=== PATIENT | female | born 1950 | race Caucasian/White ===

== ENCOUNTER → 2018-01-24 | Outpatient (CLI) | payer MEDICARE ==
[2018-01-24 16:02] LABS: BASO % 0.4 % (0.0-2.0); EOS # 0.2 (0.0-0.7); EOS % 2.2 % (0-4.0); GRAN % 56.2 % (42.2-75.2); HEMOGLOBIN 14.3 g/dl (12.5-16.0); LYMPH # 2.3 (1.2-3.4); LYMPH % 32.3 % (20.0-51.0); MEAN CELL VOLUME 92 fl (80.0-100.0); MEAN CORPUSCULAR HEMOGLOBIN 31 pg (27.0-31.0); MEAN CORPUSCULAR HGB CONC 33 g/dl (33.0-37.0); MEAN PLATELET VOLUME 10.9 fl (7.4-10.4); MONO # 0.6 (0.1-0.6); MONO % 7.9 % (1.7-9.3); PLATELET COUNT 192 K/mm3 (130-400); RED BLOOD COUNT 4.66 M/mm3 (4.10-5.30); REDCELL DISTRIBUTION WIDTH-CV 13.4 % (11.5-14.5)
[2018-01-24 16:11] LABS: ALBUMIN 4.5 gm/dL (3.5-5.0); BILIRUBIN,TOTAL 0.6 mg/dL (0.0-1.0); CALCIUM 10.2 mg/dL (8.4-10.2); CHOLESTEROL RISK RATIO 3.6; CREATININE, serum 0.61 mg/dL (0.52-1.25); POTASSIUM 4.2 mmol/L (3.4-5.0); TOTAL PROTEIN 9.3 gm/dL (6.4-8.2)
[2018-01-24 16:41] LABS: TSH w REFLEX 0.177 uIU/mL (0.465-4.680)
== END ==
LOC: COL.LAB 11:24
PROVIDERS: Family Medicine
DX: I10 Essential (primary) hypertension (principal); E78.5 Hyperlipidemia, unspecified; Z13.29 Encounter for screening for other suspected endocrine disorder

== ENCOUNTER → 2018-02-14 | Outpatient (CLI) | payer MEDICARE ==
[2018-02-14 16:52] LABS: THYROID STIMULATING HORMONE 0.067 uIU/mL (0.465-4.680)
[2018-02-15 02:15] LABS: T3 TOTAL 227 ng/dL (87-178)
== END ==
LOC: COL.LAB 11:13
PROVIDERS: Family Medicine
DX: E05.90 Thyrotoxicosis, unspecified without thyrotoxic crisis or storm (principal)

== ENCOUNTER → 2018-03-16 | Outpatient (CLI) | payer MEDICARE | LOC: COL.RAD 13:24 → COL.LAB 13:24 → COL.RAD 14:15 | DX: E05.20 Thyrotoxicosis with toxic multinodular goiter without thyrotoxic crisis or storm (principal) ==

== ENCOUNTER → 2018-03-28 | Outpatient (CLI) | payer MEDICARE ==
[~2018-03-28] VITALS: Ht 152.4 cm; Wt 89.4 kg
[~2018-03-28] MED LIST: ALLEGRA 60MG TA60 MG PO; CALCIUM CARBON650 M2 PO; CEROVITE SENIOR1 TA1 PO; DIOVAN/HCT 12.51 TAB PO; EPA FISH OIL1 SGL PO; FELDENE20 MG PO; HARD NAILS 2.51 CAP PO; HORSETAIL GRASS; NORVASC 5MG5 MG/TAB PO; TENORMIN100 MG PO; VITAMIN D 1001000 IU PO
[2018-03-28 08:41] VITALS: BP 164/90; PULSE 60
== END ==
LOC: LIGHT 08:00
DX: I10 Essential (primary) hypertension (principal); M15.9 Polyosteoarthritis, unspecified; E66.9 Obesity, unspecified; Z68.38 Body mass index [BMI] 38.0-38.9, adult; Z71.3 Dietary counseling and surveillance; N39.3 Stress incontinence (female) (male)
CPT/HCPCS: G0463

== ENCOUNTER 2018-04-02 12:45 | Outpatient (RCR) | payer MEDICARE | END 2018-04-02 14:22 | disposition home or self-care (01) | LOC: WSC 12:45 | DX: M54.32 Sciatica, left side (principal) | CPT/HCPCS: G8978-GP; G8979-GP; G8980-GP ==

== ENCOUNTER → 2018-05-02 | Outpatient (CLI) | payer MEDICARE ==
[~2018-05-02] MED LIST changes: +AVALIDE 12.5 MG1 TA1 PO; +PHENTERMINE15 MG PO
== END ==
LOC: MC.RAD 13:59
DX: Z12.31 Encounter for screening mammogram for malignant neoplasm of breast (principal)

== ENCOUNTER → 2018-05-03 | Outpatient (CLI) | payer MEDICARE ==
[~2018-05-03] VITALS: Ht 152.4 cm; Wt 90.0 kg
[2018-05-03 10:09] VITALS: BP 150/86; PULSE 72
== END ==
LOC: LIGHT 10:00
DX: I10 Essential (primary) hypertension (principal); M15.9 Polyosteoarthritis, unspecified; E66.9 Obesity, unspecified; Z68.38 Body mass index [BMI] 38.0-38.9, adult; Z71.3 Dietary counseling and surveillance
CPT/HCPCS: G0463

== ENCOUNTER → 2018-05-28 | Outpatient (CLI) | payer MEDICARE | LOC: LIGHT 10:59 | DX: Z09 Encounter for follow-up examination after completed treatment for conditions other than malignant neoplasm (principal) ==

== ENCOUNTER → 2018-06-07 | Outpatient (CLI) | payer MEDICARE ==
[~2018-06-07] VITALS: Ht 152.4 cm; Wt 89.1 kg
[2018-06-07 11:13] VITALS: BP 132/86; PULSE 68
== END ==
LOC: LIGHT 06-05 16:30
DX: I10 Essential (primary) hypertension (principal); M15.9 Polyosteoarthritis, unspecified; N39.3 Stress incontinence (female) (male); E66.9 Obesity, unspecified; Z68.38 Body mass index [BMI] 38.0-38.9, adult; Z71.3 Dietary counseling and surveillance
CPT/HCPCS: G0463

== ENCOUNTER → 2019-07-30 | Outpatient (CLI) | payer MEDICARE | LOC: MC.RAD 11:24 | DX: Z12.31 Encounter for screening mammogram for malignant neoplasm of breast (principal); Z98.82 Breast implant status ==

== ENCOUNTER → 2020-07-31 | Outpatient (CLI) | payer MEDICARE | LOC: MC.RAD 11:26 | DX: Z12.31 Encounter for screening mammogram for malignant neoplasm of breast (principal) ==

== ENCOUNTER 2021-04-01 10:28 | Day surgery (SDC) | payer MEDICARE ==
[2021-04-01] VITALS (10 sets, daily range): BP systolic 112–152; BP diastolic 58–96; PULSE 71–87; TEMP 97.6–98.5
[~2021-04-01] VITALS: Ht 152.4 cm; Wt 86.8 kg
[~2021-04-01 10:28] MED LIST changes: +GLUCOPHAGE1000 MG PO; +GLUCOPHAGE500 MG/TAB PO; +HYZAAR 12.5 MG-1 TAB PO; +LASIX 20MG TABL20 MG PO; +LOSARTAN POTASSIUM/H; +MOBIC15 MG PO; +NORVASC 10MG10 MG PO; +TOPROL XL100 MG PO; +ZOCOR 40MG40 MG PO
[2021-04-01] MEDS ORDERED: MOTRIN 600600 MG/TAB PO (14:18)
[2021-04-01] MEDS ORDERED: NORCO 325 MG-51 TAB PO (14:19)
[2021-04-01] MEDS ORDERED: ZOFRAN ODT4 MG PO (14:33)
[2021-04-02 04:16] VITALS: BP 128/71; PULSE 70; TEMP 97.9
[2021-04-02 07:16] LABS: BASO % 0.1 % (0.0-2.0); GRAN # 8.2 (1.4-6.5); GRAN % 83.7 % (42.2-75.2); HEMOGLOBIN 11.3 g/dl (12.5-16.0); LYMPH # 1.2 (1.2-3.4); LYMPH % 11.8 % (20.0-51.0); MEAN CELL VOLUME 90 fl (80.0-100.0); MEAN CORPUSCULAR HEMOGLOBIN 29 pg (27.0-31.0); MEAN CORPUSCULAR HGB CONC 32 g/dl (33.0-37.0); MEAN PLATELET VOLUME 10.4 fl (7.4-10.4); MONO # 0.3 (0.1-0.6); MONO % 3.5 % (1.7-9.3); PLATELET COUNT 273 K/mm3 (130-400); RED BLOOD COUNT 3.89 M/mm3 (4.10-5.30); REDCELL DISTRIBUTION WIDTH-CV 14.6 % (11.5-14.5)
[2021-04-02 07:19] LABS: HEMATOCRIT 34.9 % (37.0-47.0)
[2021-04-02 07:29] LABS: ALBUMIN 3.9 gm/dL (3.5-5.0); BILIRUBIN,TOTAL 0.2 mg/dL (0.0-1.0); CREATININE, serum 0.6 (0.52-1.25); POTASSIUM 3.8 mmol/L (3.4-5.0); TOTAL PROTEIN 7.2 gm/dL (6.4-8.2)
[2021-04-02 07:46] VITALS: BP 121/73; PULSE 70; TEMP 98.6
--- NOTE | 2021-04-02 08:00 | NUR ---
PATIENT IS A&O. VSS. REPORTS MILD ABD DISCOMFORT AND DENIES NEED FOR PAIN MEDS AT THIS TIME. ABD IS ROUND, SOFT AND WITH POSITIVE BOWL SOUNDS. PATIENT REPORTS SHE IS PASSING GAS. LAST BM WAS YESTERDAY AM. ABD LAP SITES X3 ARE CD&I WITH GLUDED CLOSURE. PATIENT IS EAT/DRINK/VOIDING SUFFICIENT AMOUNTS. HEAD TO TOE ASSESSMENT WNL. LEFT FORARM IV TO INT. BREAKFAST TRAY AT BEDSIDE. AM MEDS GIVEN. PATIENT INDEPENDENT IN ROOM. NO OTHER NEEDS AT THIS TIME. CALL LIGHT IN REACH.
[2021-04-02 12:00] VITALS: BP 134/70; PULSE 64; TEMP 98.1
--- NOTE | 2021-04-02 12:07 | NUR ---
First visit from [facility]. No needs right now.
--- NOTE | 2021-04-02 14:50 | NUR ---
AT BEDSIDE. SEE DISCHARGE ORDERS.
--- NOTE | 2021-04-02 15:20 | NUR ---
PATIENT DISCHARGING HOME VIA AMBULATORY TO PERSONAL VEHICLE WITH . GAVE DISCHARGE INSTRUCTIONS, E-SCRIPTS SENT, AND IV DC'D. COVERED SITE WITH GAUZE & BANDAID. PATIENT IS DRESSED, PACKED AND DISCHARGED.
== END 2021-04-02 15:20 | disposition home or self-care (01) ==
LOC: SDCO 10:28 → SURG 15:00 → SDCO 04-02 15:20
PROVIDERS: Surgery
DX: K56.50 Intestinal adhesions [bands], unspecified as to partial versus complete obstruction (principal); E78.00 Pure hypercholesterolemia, unspecified; M81.0 Age-related osteoporosis without current pathological fracture; I10 Essential (primary) hypertension; M19.90 Unspecified osteoarthritis, unspecified site; E11.9 Type 2 diabetes mellitus without complications; Z79.84 Long term (current) use of oral hypoglycemic drugs; Z79.899 Other long term (current) drug therapy; Z90.710 Acquired absence of both cervix and uterus; Z80.42 Family history of malignant neoplasm of prostate; Z82.3 Family history of stroke
CPT/HCPCS: OP; J0690; J1100; J2405; J2704; J3010; J7120

== ENCOUNTER → 2021-10-11 | Outpatient (CLI) | payer MEDICARE ==
[~2021-10-11] MED LIST changes: +MOTRIN 600600 MG/TAB PO; +NORCO 325 MG-51 TAB PO; +ZOFRAN ODT4 MG PO
== END ==
LOC: MC.RAD 11:15
DX: Z12.31 Encounter for screening mammogram for malignant neoplasm of breast (principal)